=== PATIENT | female | born 1940 | race Caucasian/White ===

== ENCOUNTER 2017-01-22 12:31 | Outpatient (CLI) | payer MEDICARE ==
--- OUTSIDE RECORDS SUMMARY | 2017-01-22 12:33 | XMS | Clinical Summary ---
:[address] [facility] Address [address] [place] [id number] Phone Care Team Providers Name Role Phone , Primary Care Provider Unavailable Allergies Not on File Current Medications Not on file Active Problems Not on file Social History Tobacco Use Types Packs/Day Years Used Date Never Assessed Sex Assigned at Date Recorded Not on file Last Filed Vital Signs Not on file Plan of Treatment Not on file Results Not on filefrom Last 3 Months
[2017-01-22 13:54] LABS: #Eosinphils 0.1 thou/uL (0.0-0.7); #Lymphocytes 1.6 thou/uL (1.20-3.40); #Monocytes 0.5 thou/uL (0.11-0.59); #Neutrophils 5.1 thou/uL (1.40-6.50); %Basophils 0.5 % (0.0-1.0); %Eosinophils 1.5 % (0.0-10.0); %Lymphocytes 21.8 % (21.0-51.0); %Monocytes 6.7 % (0.0-10.0); Hematocrit 38.3 % (36.0-47.0); Mean Platelet Volume 7.2 fL (7.4-10.4); Red Blood Cell (RBC) Count 4.04 mill/uL (4.20-5.40); White Blood Cell (WBC) Count 7.3 thou/uL (4.8-10.8)
[2017-01-22 14:01] LABS: PTT 29.7 SEC (22.9-36.1)
[2017-01-22 14:02] LABS: Prothrombin Time 13.5 SEC (12.0-14.7)
[2017-01-22 14:17] LABS: Anion Gap 14 mmol/L (10-20); BUN (Urea Nitrogen) 16 mg/dL (9.8-20.1); Calc. Creatinine Clearance 0 mL/min (70-130); Calcium 9.6 mg/dL (7.8-10.44); Carbon Dioxide 26 mmol/L (23-31); Chloride 102 mmol/L (98-107); Estimated GFR-MDRD 73
--- NOTE | 2017-01-22 14:37 | RAD ---
CHEST 2 VIEWS: Date: 01/22/17 HISTORY: Preop. FINDINGS: Cardiac silhouette and pulmonary vasculature are unremarkable. Mediastinum is midline. There is no c onfluent air space consolidation, pneumothorax, or pleural fluid apparent. Degenerative changes of t he left shoulder are apparent. Postoperative changes of the right shoulder, right upper quadrant, an d lumbar spine are evident. IMPRESSION: No active cardiopulmonary abnormalities are demonstrated. POS: [facility]
[2017-01-22 14:54] LABS: Bilirubin Negative (Negative); Blood, Urine Negative (Negative); Glucose, Urine (Dipstick) Negative (Negative); Ketone, Urine Negative (Negative); Nitrite Negative (Negative); Protein, Urine (Dipstick) Negative (Neg-Trace); Urobilinogen 0.2 mg/dL (0.2-1.0)
[2017-01-22 15:00] LABS: Bacteria/HPF None Seen HPF (None Seen); Hyaline Casts/LPF 0-3 HYALINE CAST LPF (0-3 Hyaline); RBC/HPF 0-3 HPF (0-3); Squamous Epithelial 0-3 HPF (0-3)
== END 2017-01-22 12:32 | disposition home or self-care (01) ==
LOC: LABBT 12:31
PROVIDERS: ATTEND Orthopaedic Surgery
DX: Z01.818 Encounter for other preprocedural examination (principal); M75.101 Unspecified rotator cuff tear or rupture of right shoulder, not specified as traumatic
CPT/HCPCS: 71020; 80048; 81001; 85025; 85610; 85730; 86850; 86900; 86901; 87081

== ENCOUNTER 2017-02-11 14:28 | Outpatient (CLI) | payer MEDICARE ==
--- OUTSIDE RECORDS SUMMARY | 2017-02-13 09:16 | XMS | Clinical Summary ---
:1940 Author Organization [facility] Address [address] [place] [id number] Phone Care Team Providers Name Role Phone [...]
== END 2017-02-11 14:29 | disposition home or self-care (01) ==
LOC: LABBT 14:28
PROVIDERS: ATTEND Orthopaedic Surgery
DX: Z01.818 Encounter for other preprocedural examination (principal); M12.811 Other specific arthropathies, not elsewhere classified, right shoulder
CPT/HCPCS: 93005; 93010

== ENCOUNTER 2017-06-20 18:29 | Emergency (ER) | payer MEDICARE ==
--- NOTE | 2017-06-20 21:20 | ULT ---
ULTRASOUND WITH DOPPLER DUPLEX VENOUS LOWER EXTREMITY RIGHT 06/20/17 CPT: 86674 ICD-10-PCS: B54D HISTORY: Edema, erythema and pain of right lower extremity. TECHNIQUE: Color flow Doppler, spectral waveform analysis of pulsed Doppler, and smith-scale imaging with beatriz yoav and augmentation, were used to evaluate the right common femoral, femoral, popliteal, posterior tibial, and superficial femoral, veins; and the proximal portions of the profunda femoral and greater saphenous, veins. FINDINGS: There is appropriate compressibility and flow within the imaged deep vein system right lower extremit y without evidence of DVT. There is complex echogenicity of the right popliteal fossa which may be re lated to Pendleton's cyst formation. IMPRESSION: 1. No DVT. 2. Possible Pendleton's cyst. Correlate clinically. POS: [facility]
== END 2017-06-21 00:14 | disposition home or self-care (01) ==
LOC: ERS 18:29
DX: M71.21 Synovial cyst of popliteal space [Baker], right knee (principal); I10 Essential (primary) hypertension; E78.5 Hyperlipidemia, unspecified; M10.9 Gout, unspecified; E11.9 Type 2 diabetes mellitus without complications

== ENCOUNTER 2018-10-28 13:08 | Outpatient (CLI) | payer MEDICARE ==
[~2018-10-28 13:08] MED LIST: ISOVUE-370 76%-LOCM 1 ML ONE
--- NOTE | 2018-10-28 15:35 | CT ---
CTA OF THE ABDOMEN WITH CONTRAST 10/28/18 COMPARISON: None. HISTORY: Uncontrolled hypertension. TECHNIQUE: Multiple contiguous axial images were obtained in a CTA of the abdomen with contrast per renal artery protocol. 3D sagittal and coronal MIP reformats were performed. FINDINGS: The patient is status post cholecystectomy. The liver, kidneys, adrenal glands, spleen, and pancreas are unremarkable. No free air, free fluid, or stranding changes are seen in the abdomen. Scattered diverticula are seen in the colon. The small bowel is unremarkable. No abdominal adenopathy is seen. Mild atherosclerotic disease is seen in the infrarenal aorta. The celiac trunk, SMA, and ASHLEY are garg nt with no significant atherosclerotic disease. There is a single renal artery on the right and two r enal arteries on the left. Mild atherosclerotic disease is seen in the bilateral proximal renal arter ies without significant stenosis. No atherosclerotic disease is seen in the accessory left renal ferdinand ry. Degenerative changes and postsurgical changes are seen in the spine. The abdominal wall soft tissues and visualized inferior thorax are unremarkable. IMPRESSION: 1. No evidence of renal artery stenosis. 2. Diverticulosis. POS: [facility]
== END 2018-10-28 13:09 | disposition home or self-care (01) ==
LOC: BICCT 13:08
PROVIDERS: ATTEND Psychiatry & Neurology Neurology
DX: I71.9 Aortic aneurysm of unspecified site, without rupture (principal); K57.30 Diverticulosis of large intestine without perforation or abscess without bleeding
CPT/HCPCS: 74175; 82565; Q9966

== ENCOUNTER 2019-03-29 09:46 | Outpatient (CLI) | payer MEDICARE ==
[2019-03-29] MEDS ORDERED: Iopamidol-370 76% 500 ML 1 ML ONE (11:05)
--- NOTE | 2019-03-29 11:15 | CT ---
CT abdomen and pelvis with IV and oral contrast HISTORY: Right abdominal pain. COMPARISON: 10/28/2018. FINDINGS: Lung bases are clear. Gallbladder is surgically absent. Appendix not visualized and may als o be surgically absent. Tiny cysts of the left kidney. Liver and spleen have a normal appearance. No enlarged lymph nodes or free fluid. No evidence of bowel obstruction or inflammation. Urinary bladder is intact. Diverticula arise from the colon without adjacent inflammation. Calcification within the arterial str uctures. Postoperative and prominent degenerative changes of the lumbar spine. IMPRESSION: Diverticulosis. No evidence of diverticulitis. Atherosclerosis.
== END 2019-03-29 09:47 | disposition home or self-care (01) ==
LOC: BICCT 09:46
PROVIDERS: ATTEND Internal Medicine
DX: R10.31 Right lower quadrant pain (principal); K57.30 Diverticulosis of large intestine without perforation or abscess without bleeding; I70.90 Unspecified atherosclerosis
CPT/HCPCS: 74177; 82565; Q9967

== ENCOUNTER 2020-01-28 09:09 | Outpatient (CLI) | payer MEDICARE ==
--- NOTE | 2020-01-28 11:10 | MRI ---
MRI cervical spine noncontrast: 01/28/2020 HISTORY: 79-year-old female with cervical radiculopathy. M 54.12 COMPARISON: None available FINDINGS: Lateral curvature of cervical spine. Small caliber of spinal canal on a congenital basis due to devel opmentally short pedicles in the upper levels, exacerbated by cervical spondylosis. No such developmentally small caliber at lower levels. Vertebral body heights are maintained. No major bone m arrow signal abnormality identified. Images are degraded by motion such that it is somewhat difficult to evaluate for intramedullary signal abnormality. At the C6 level, there is questionable m ild T2 hyperintense intramedullary signal abnormality diffusely. This may or may not be artifact. No high-grade disc space narrowing at any level. Mild disc space narrowing at C3-4. No subluxation. C1-2: At least mild central spinal canal stenosis due to degenerative pseudopannus at atlantoodontoid junction. Only imaged on sagittal sequences. C2-3: Moderate ligamentum flavum thickening indenting the dorsal surface of spinal cord, and minimal disc bulge, superimposed on the developmentally small caliber spinal canal, result in moderate to severe central spinal canal stenosis. No high-grade neural foraminal stenosis. Severe left facet dege nerative hypertrophy. C3-4: Minimal disc bulge or disc-osteophyte complex broad-based encroaches upon ventral aspect of spi nal canal. Moderate ligamentum flavum thickening. Moderate to severe central spinal canal stenosis. Moderate sized right uncinate process osteophytes and severe right facet DJD result in severe right n eural foraminal stenosis. Moderate left facet DJD. Mild to moderate left neural foraminal stenosis. C4-5: Broad-based disc protrusion slightly indents ventral aspect of thecal sac. Mild to moderate gomez tral spinal canal stenosis. Moderate size right uncinate process osteophytes, together with severe right facet degenerative hypertrophy, results in severe right neural foraminal stenosis. Mild to mode rate left neural foraminal stenosis. C5-6: Broad-based shallow disc-osteophyte complex or disc protrusion. Ligamentum flavum thickening. M oderate size bilateral uncinate process osteophytes. Moderate to severe right facet DJD. Severe left facet degenerative hypertrophy. Moderate to severe right neural foraminal stenosis. Mild to mode rate left neural foraminal stenosis. Mild central spinal canal stenosis. C6-7: Severe right facet DJD. Bilateral moderate-sized uncinate process osteophytes. Severe stenosis of medial aspect of right neural foramen. Moderate to severe left neural foraminal stenosis. No high-grade left facet DJD. No central spinal canal stenosis. C7-T1: No central spinal canal stenosis. Moderate left facet DJD. Normal right facet joint. Mild bila teral neural foraminal stenosis. IMPRESSION: 1.) Cervical spondylosis mostly consisting of high-grade, including severe, bilateral facet osteoarth rosis. 2) severe right-sided neural foraminal stenosis at several levels. 3) central spinal canal stenosis at upper levels.
== END 2020-01-28 09:10 | disposition home or self-care (01) ==
LOC: TBSIIMAG 09:09
PROVIDERS: ATTEND Psychiatry & Neurology Neurology
DX: M47.22 Other spondylosis with radiculopathy, cervical region (principal); M48.02 Spinal stenosis, cervical region
CPT/HCPCS: 72141

== ENCOUNTER 2020-09-21 13:49 | Outpatient (CLI) | payer MEDICARE ==
[2020-09-21 16:08] LABS: #Eosinphils 0.2 10x3/uL (0.0-0.5); #Monocytes 0.5 10x3/uL (0.0-1.1); #Neutrophils 6.6 10x3/uL (1.5-8.4); %Basophils 0.4 % (0.0-2.0); %Eosinophils 1.8 % (0.0-6.0); %Lymphocytes 18.3 % (18.0-47.0); %Monocytes 5.4 % (0.0-10.0); %Neutrophils 73.8 % (40.0-75.0); Hemoglobin 12.5 g/dL (12.0-15.5); Mean Corpuscular HGB CONC 32.9 g/dL (32.0-36.0); Mean Corpuscular Hemoglobin 29.9 pg (27.0-33.0); Mean Corpuscular Volume 90.9 fl (81.6-98.3); Mean Platelet Volume 10.6 fl (7.4-10.4); Platelet Count 210 10x3/uL (150-450); RBC Distribution Width 13.1 % (11.5-14.5); Red Blood Cell (RBC) Count 4.18 10x6/uL (3.90-5.03)
[2020-09-21 16:19] LABS: Prothrombin Time 11.4 sec (9.5-12.1)
[2020-09-21 16:24] LABS: Anion Gap 16 mmol/L (10-20); BUN (Urea Nitrogen) 22 mg/dL (9.8-20.1); Calc. Creatinine Clearance 0 mL/min (70-130); Calcium 9.5 mg/dL (7.8-10.44); Carbon Dioxide 27 mmol/L (23-31); Chloride 104 mmol/L (98-107); Glucose 160 mg/dL (83-110); Potassium 4.7 mmol/L (3.5-5.1); Sodium 142 mmol/L (136-145)
[2020-09-22 13:03] LABS: SARS-CoV-2 PCR by NAA Not Detected (NotDetected)
== END 2020-09-21 13:50 | disposition home or self-care (01) ==
LOC: LABBT 13:49
PROVIDERS: ATTEND Orthopaedic Surgery
DX: Z01.818 Encounter for other preprocedural examination (principal); M17.11 Unilateral primary osteoarthritis, right knee; Z20.822 Contact with and (suspected) exposure to COVID-19
CPT/HCPCS: 80048; 85025; 85610; 87081; 93005; U0003; U0005; 93010

== ENCOUNTER 2020-09-26 09:20 | Inpatient (IN) | payer MEDICARE ==
[2020-09-22 13:34] VITALS: BMI 34.3
[2020-09-26] MEDS ORDERED: Midazolam HCl 2 mg/2 ml Vial ONE (10:10)
[2020-09-26] MEDS ORDERED: Fentanyl 100 MCG/2 ML VIAL ONE ×3 (10:10→14:13)
[2020-09-26] MEDS ORDERED: Tranexamic Acid 1,000 MG/10 ML VIAL ONE (10:13)
[2020-09-26] MEDS ORDERED: Sodium Chloride 0.9% 200 ML ONE (10:13)
[2020-09-26] MEDS ORDERED: Vancomycin 1 GM/200 ML BAG ONE (10:13)
[2020-09-26] MEDS ORDERED: Vancomycin HCl 500 MG VIAL ONE (10:13)
[2020-09-26] MEDS ORDERED: Fentanyl 100 MCG/2 ML VIAL IV PRN (10:44)
[2020-09-26] MEDS ORDERED: Ondansetron PF 4 MG/2 ML Vial IVP PRN ×2 (10:45→10:59)
[2020-09-26] MEDS ORDERED: traMADol HCl 50 MG TAB PO PRN (10:45)
[2020-09-26] MEDS ORDERED: Promethazine HCl 25 MG/ML VIAL IM PRN ×3 (10:45→12:10)
[2020-09-26] MEDS ORDERED: Ropivacaine HCl/PF 250 ML in Premix Bag 1 BAG NERVE BLCK SCH (10:45)
[2020-09-26] MEDS ORDERED: Zolpidem Tartrate 5 MG TAB PO PRN ×2 (10:45→10:59)
[2020-09-26] MEDS ORDERED: Acetaminophen 325 MG TAB PO PRN (10:59)
[2020-09-26] MEDS ORDERED: diphenhydrAMINE 25 MG CAP PO PRN (10:59)
[2020-09-26] MEDS ORDERED: Ipratropium Bromide 0.03% Nasal Inhaler 30 ml Bottle EA NARE PRN (11:00)
[2020-09-26] MEDS ORDERED: Bupivacaine HCl 0.5%/Epinephrine 1:200,000/PF 30 ml Vial ONE (11:44)
[2020-09-26] MEDS ORDERED: Ondansetron PF 4 MG/2 ML Vial ONE ×2 (11:44→13:31)
[2020-09-26] MEDS ORDERED: PROPOFOL 200 MG/20 ML VIAL ONE (11:44)
[2020-09-26] MEDS ORDERED: Lidocaine 1% PF 5 ML VIAL ONE (11:44)
[2020-09-26] MEDS ORDERED: Glycopyrrolate 0.2 MG/ML 5 ML SYRINGE ONE (11:44)
[2020-09-26] MEDS ORDERED: Ropivacaine 2% HCl/PF (20 MG/10 ML VIAL) ONE (11:44)
[2020-09-26] MEDS ORDERED: Promethazine HCl 25 MG/ML VIAL SLOW IVP PRN (12:10)
[2020-09-26] MEDS ORDERED: Ondansetron HCl/PF 4 MG/2 ML Vial IVP PRN (12:10)
[2020-09-26] MEDS ORDERED: Ketorolac Tromethamine 30 MG/ML VIAL ONE (13:53)
[2020-09-26] MEDS ORDERED: Promethazine HCl 25 MG/ML VIAL ONE (14:12)
[2020-09-26] MEDS: Ketorolac Tromethamine 30 MG/ML VIAL IVP SCH ×3 (15:30→23:00)
[2020-09-26] MEDS: HYDROcodone/Acetaminophen 10/325 mg Tablet PO PRN ×2 (15:40→23:03)
[2020-09-26] MEDS ORDERED: Dextrose 50% Abboject 50 ML SYRINGE SLOW IVP PRN (16:12)
[2020-09-26] MEDS ORDERED: Dextrose 5% in Water 1,000 ML IV PRN (16:12)
[2020-09-26] MEDS ORDERED: Insulin Regular 300 UNITS/3 ML VIAL SC PRN (16:12)
[2020-09-26] MEDS: Alogliptin 6.25 MG TAB PO SCH (17:03)
[2020-09-26] MEDS: metFORMIN 500 MG TAB PO SCH (17:03)
[2020-09-26] MEDS: CEFAZOLIN 2 GM in Premix Bag 1 BAG IVPB SCH (17:13)
[2020-09-26] MEDS: traMADol HCl 50 MG TAB PO PRN (18:16)
[2020-09-26] MEDS ORDERED: Metoprolol Tartrate 25 MG TAB PO SCH (21:00)
[2020-09-26] MEDS: Aspirin 81 mg Enteric Coated Tablet PO SCH (21:35)
[2020-09-26] MEDS: Ferrous Gluconate 324 MG TAB PO SCH (21:35)
[2020-09-26] MEDS: Atorvastatin Calcium 40 MG TAB PO SCH (21:35)
[2020-09-26] MEDS: Senokot S 8.6-50 MG TAB PO SCH (21:36)
[2020-09-26] MEDS: Metoprolol Tartrate 50 MG TAB PO SCH (21:36)
[2020-09-26] MEDS: Pyridostigmine Bromide IR 60 MG TAB PO SCH (22:06)
[2020-09-27] MEDS: CEFAZOLIN 2 GM in Premix Bag 1 BAG IVPB SCH (01:50)
[2020-09-27] MEDS: traMADol HCl 50 MG TAB PO PRN (01:58)
[2020-09-27] MEDS: Ketorolac Tromethamine 30 MG/ML VIAL IVP SCH ×3 (05:09→17:55)
[2020-09-27] MEDS: Levothyroxine Sodium 75 MCG TAB PO SCH (05:11)
[2020-09-27 05:42] LABS: Hemoglobin 9.9 g/dL (12.0-16.0); Mean Corpuscular HGB CONC 33.6 g/dL (32.0-36.0); Mean Corpuscular Hemoglobin 30.8 pg (27.0-31.0); Mean Corpuscular Volume 91.6 fL (78.0-98.0); Mean Platelet Volume 8.2 fL (7.4-10.4); Platelet Count 151 thou/uL (130-400); RBC Distribution Width 12.1 % (11.5-14.5); White Blood Cell (WBC) Count 11.3 thou/uL (4.8-10.8)
[2020-09-27 06:04] LABS: Anion Gap 13 mmol/L (10-20); BUN (Urea Nitrogen) 11 mg/dL (9.8-20.1); Calc. Creatinine Clearance 91 mL/min (70-130); Calcium 8.2 mg/dL (7.8-10.44); Carbon Dioxide 24 mmol/L (23-31); Chloride 100 mmol/L (98-107); Glucose 152 mg/dL (83-110); Magnesium 1.4 mg/dL (1.6-2.6); Potassium 3.5 mmol/L (3.5-5.1); Sodium 133 mmol/L (136-145)
[2020-09-27] MEDS ORDERED: Magnesium Sulfate 3 GM in Sodium Chloride 0.9% 100 ML IVPB SCH (08:00)
[2020-09-27] MEDS ORDERED: Lisinopril 20 MG TAB PO SCH (09:00)
[2020-09-27] MEDS ORDERED: Calcium Citrate 950 MG TAB PO SCH (09:00)
[2020-09-27] MEDS ORDERED: Amlodipine 5 MG TAB PO SCH (09:00)
[2020-09-27] MEDS ORDERED: Multivitamin W/ Minerals 1 TAB PO SCH (09:00)
[2020-09-27] MEDS ORDERED: Hydrochlorothiazide 25 MG TAB PO SCH (09:00)
[2020-09-27] MEDS ORDERED: GLATIRAMER ACETATE 40 MG PO SCH (09:00)
[2020-09-27] MEDS ORDERED: Non-Formulary Item 1 EACH (Biotin [Biotin] 10,000 MCG Capsule) PO SCH (09:00)
[2020-09-27] MEDS: Stress 600 With Zinc 1 TAB PO SCH (09:45)
[2020-09-27] MEDS: Alogliptin 6.25 MG TAB PO SCH ×2 (09:46→17:54)
[2020-09-27] MEDS: Cholecalciferol 1,000 UNITS (25 MCG) TAB PO SCH (09:46)
[2020-09-27] MEDS: Pioglitazone HCl 15 MG TAB PO SCH (09:47)
[2020-09-27] MEDS: Multivitamin W/ Minerals 1 TAB PO SCH (09:47)
[2020-09-27] MEDS: Senokot S 8.6-50 MG TAB PO SCH ×2 (09:47→20:59)
[2020-09-27] MEDS: Ferrous Gluconate 324 MG TAB PO SCH ×2 (09:47→20:58)
[2020-09-27] MEDS: Aspirin 81 mg Enteric Coated Tablet PO SCH ×2 (09:47→20:58)
[2020-09-27] MEDS: Folic Acid 1 MG TAB PO SCH (09:47)
[2020-09-27] MEDS: metFORMIN 500 MG TAB PO SCH ×2 (09:48→17:54)
[2020-09-27] MEDS: Pyridostigmine Bromide IR 60 MG TAB PO SCH ×2 (09:48→21:05)
[2020-09-27] MEDS: Metoprolol Tartrate 50 MG TAB PO SCH ×2 (09:49→20:54)
[2020-09-27] MEDS: Amlodipine 5 MG TAB PO SCH (09:49)
[2020-09-27] MEDS: HYDROcodone/Acetaminophen 10/325 mg Tablet PO PRN ×3 (11:03→21:04)
[2020-09-27] MEDS: Sodium Chloride 0.9% 500 ML IVPB SCH ×2 (12:35→13:52)
[2020-09-27 13:47] LABS: Bilirubin Negative (Negative); Blood, Urine Moderate (Negative); Glucose, Urine (Dipstick) Negative (Negative); Ketone, Urine Negative (Negative); Leukocyte Negative (Negative); Nitrite Negative (Negative); Protein, Urine (Dipstick) Negative (Neg-Trace); Urobilinogen 0.2 mg/dL (Less than 2)
[2020-09-27 14:02] LABS: Clarity Clear (Clear)
[2020-09-27 14:42] LABS: Bacteria/HPF None Seen HPF (None Seen); RBC/HPF 0-3 HPF (0-3); Squamous Epithelial None Seen HPF (0-3); Urine Culture Reflex No No; WBC/HPF None Seen HPF (0-3)
[2020-09-27] MEDS ORDERED: Lidocaine 1% w/Epinephrine 1:100K 20 ML VIAL ONE (17:05)
[2020-09-27] MEDS: Insulin Regular 300 UNITS/3 ML VIAL SC PRN (17:59)
[2020-09-27] MEDS: Atorvastatin Calcium 40 MG TAB PO SCH (20:58)
[2020-09-28] MEDS: Ketorolac Tromethamine 30 MG/ML VIAL IVP SCH ×2 (00:34→06:36)
[2020-09-28] MEDS: HYDROcodone/Acetaminophen 10/325 mg Tablet PO PRN ×2 (00:37→14:52)
[2020-09-28 05:56] LABS: Hemoglobin 9.2 g/dL (12.0-16.0); Mean Corpuscular HGB CONC 33.9 g/dL (32.0-36.0); Mean Corpuscular Hemoglobin 31.7 pg (27.0-31.0); Mean Corpuscular Volume 93.4 fL (78.0-98.0); Mean Platelet Volume 7.8 fL (7.4-10.4); Platelet Count 138 thou/uL (130-400); Red Blood Cell (RBC) Count 2.91 mill/uL (4.20-5.40); White Blood Cell (WBC) Count 8.9 thou/uL (4.8-10.8)
[2020-09-28] MEDS: Levothyroxine Sodium 75 MCG TAB PO SCH (06:36)
[2020-09-28] MEDS: Ferrous Gluconate 324 MG TAB PO SCH (09:14)
[2020-09-28] MEDS: Multivitamin W/ Minerals 1 TAB PO SCH (09:14)
[2020-09-28] MEDS: Senokot S 8.6-50 MG TAB PO SCH (09:14)
[2020-09-28] MEDS: Folic Acid 1 MG TAB PO SCH (09:14)
[2020-09-28] MEDS: Pioglitazone HCl 15 MG TAB PO SCH (09:14)
[2020-09-28] MEDS: metFORMIN 500 MG TAB PO SCH ×2 (09:14→17:44)
[2020-09-28] MEDS: Aspirin 81 mg Enteric Coated Tablet PO SCH (09:15)
[2020-09-28] MEDS: Cholecalciferol 1,000 UNITS (25 MCG) TAB PO SCH (09:15)
[2020-09-28] MEDS: Metoprolol Tartrate 50 MG TAB PO SCH (09:16)
[2020-09-28] MEDS: Stress 600 With Zinc 1 TAB PO SCH (09:16)
[2020-09-28] MEDS: Pyridostigmine Bromide IR 60 MG TAB PO SCH (09:16)
[2020-09-28] MEDS: Amlodipine 5 MG TAB PO SCH (09:16)
[2020-09-28] MEDS: Alogliptin 6.25 MG TAB PO SCH ×2 (09:21→17:44)
[2020-09-28] MEDS: Insulin Regular 300 UNITS/3 ML VIAL SC PRN (11:51)
[2020-09-28] MEDS ORDERED: Ropivacaine HCl/PF 250 ML in Premix Bag 1 BAG NERVE BLCK SCH (12:00)
[2020-09-28 15:27] VITALS: BP 139/68; TEMP 99.5
[2020-09-29] MEDS ORDERED: GLATIRAMER ACETATE 40 MG/ML SC SCH (09:00)
== END 2020-09-28 18:10 | disposition swing bed (61) | DRG 470 ==
LOC: SDC 09:20 → SURG B 10:59
PROVIDERS: ADMIT Orthopaedic Surgery; ATTEND Hospitalist
PROC: 0SRC0J9 Replacement of Right Knee Joint with Synthetic Substitute, Cemented, Open Approach (ICD-10-PCS; principal; 2020-09-26)
PROC: 8E0YXBZ Computer Assisted Procedure of Lower Extremity (ICD-10-PCS; 2020-09-26)
DX: M17.11 Unilateral primary osteoarthritis, right knee (principal); Z20.822 Contact with and (suspected) exposure to COVID-19; G35 Multiple sclerosis; I10 Essential (primary) hypertension; E78.5 Hyperlipidemia, unspecified; M10.9 Gout, unspecified; K21.9 Gastro-esophageal reflux disease without esophagitis; E78.00 Pure hypercholesterolemia, unspecified; E03.9 Hypothyroidism, unspecified; M51.36 Other intervertebral disc degeneration, lumbar region; G89.29 Other chronic pain; I25.10 Atherosclerotic heart disease of native coronary artery without angina pectoris; D64.9 Anemia, unspecified; J30.2 Other seasonal allergic rhinitis; G70.00 Myasthenia gravis without (acute) exacerbation; E11.51 Type 2 diabetes mellitus with diabetic peripheral angiopathy without gangrene; E11.69 Type 2 diabetes mellitus with other specified complication; E66.01 Morbid (severe) obesity due to excess calories; Z96.652 Presence of left artificial knee joint; I95.9 Hypotension, unspecified; Z68.34 Body mass index [BMI] 34.0-34.9, adult; Z90.49 Acquired absence of other specified parts of digestive tract; Z98.890 Other specified postprocedural states; Z98.1 Arthrodesis status; Z90.710 Acquired absence of both cervix and uterus; Z79.899 Other long term (current) drug therapy; Z79.82 Long term (current) use of aspirin; Z79.890 Hormone replacement therapy; Z95.5 Presence of coronary angioplasty implant and graft; Z87.891 Personal history of nicotine dependence
CPT/HCPCS: 36415; 36416; 80048; 81001; 83735; 85027; C1713; C1776; J0690; J1815; J1885; J2250; J2405; J2550; J2704; J2795; J3010; J3370; J3490; J7030

== ENCOUNTER 2021-01-30 10:24 | Outpatient (CLI) | payer MEDICARE ==
[2021-01-30 11:34] LABS: #Eosinphils 0.1 10x3/uL (0.0-0.5); #Monocytes 0.5 10x3/uL (0.0-1.1); #Neutrophils 7.2 10x3/uL (1.5-8.4); %Basophils 0.4 % (0.0-2.0); %Eosinophils 1.1 % (0.0-6.0); %Lymphocytes 18.2 % (18.0-47.0); %Monocytes 5.2 % (0.0-10.0); %Neutrophils 74.7 % (40.0-75.0); Hemoglobin 12.1 g/dL (12.0-15.5); Mean Corpuscular HGB CONC 32.8 g/dL (32.0-36.0); Mean Corpuscular Hemoglobin 28.8 pg (27.0-33.0); Mean Corpuscular Volume 87.9 fl (81.6-98.3); Mean Platelet Volume 10.7 fl (7.4-10.4); Platelet Count 209 10x3/uL (150-450); RBC Distribution Width 13.7 % (11.5-14.5); White Blood Cell (WBC) Count 9.6 10x3/uL (3.5-10.5)
[2021-01-30 12:11] LABS: Anion Gap 18 mmol/L (10-20); BUN (Urea Nitrogen) 18 mg/dL (9.8-20.1); Calc. Creatinine Clearance 0 mL/min (70-130); Calcium 10.2 mg/dL (7.8-10.44); Carbon Dioxide 25 mmol/L (23-31); Chloride 103 mmol/L (98-107); Glucose 155 mg/dL (83-110); Potassium 4.1 mmol/L (3.5-5.1); Sodium 142 mmol/L (136-145)
[2021-01-30 20:37] LABS: SARS-CoV-2 PCR by NAA Not Detected (NotDetected)
== END 2021-01-30 10:25 | disposition home or self-care (01) ==
LOC: LABBT 10:24
PROVIDERS: ATTEND Orthopaedic Surgery
DX: Z01.812 Encounter for preprocedural laboratory examination (principal); M19.012 Primary osteoarthritis, left shoulder; Z20.822 Contact with and (suspected) exposure to COVID-19
CPT/HCPCS: 80048; 85025; U0003; U0005

== ENCOUNTER 2021-02-01 07:36 | Observation (INO) | payer MEDICARE ==
[2021-02-01] MEDS ORDERED: ceFAZolin 2 GM/DEX 5% 100 ML BAG ONE (08:03)
[2021-02-01] MEDS ORDERED: Tranexamic Acid 1,000 MG/10 ML VIAL ONE ×2 (08:03→12:09)
[2021-02-01] MEDS ORDERED: Sodium Chloride 0.9% 100 ML ONE (08:04)
[2021-02-01] MEDS ORDERED: Fentanyl 100 MCG/2 ML VIAL ONE ×4 (08:11→12:36)
[2021-02-01] MEDS ORDERED: Midazolam HCl 2 mg/2 ml Vial ONE (08:11)
[2021-02-01] MEDS ORDERED: Vancomycin 1.5 GRAM/300 ML BAG 1.5 GM in Premix Bag 1 BAG IVPB SCH (08:15)
[2021-02-01] MEDS ORDERED: Sodium Chloride 0.9% 10 ML ONE (09:21)
[2021-02-01] MEDS ORDERED: Fentanyl 100 MCG/2 ML VIAL SLOW IVP PRN (09:25)
[2021-02-01] MEDS ORDERED: Ondansetron PF 4 MG/2 ML Vial IVP PRN (09:30)
[2021-02-01] MEDS ORDERED: Promethazine HCl 25 MG/ML VIAL IM PRN ×2 (09:30→12:06)
[2021-02-01] MEDS ORDERED: HYDROcodone/Acetaminophen 10/325 mg Tablet PO PRN ×2 (09:30→11:43)
[2021-02-01] MEDS ORDERED: Zolpidem Tartrate 5 MG TAB PO PRN (09:30)
[2021-02-01] MEDS ORDERED: traMADol HCl 50 MG TAB PO PRN (09:30)
[2021-02-01] MEDS ORDERED: Ropivacaine 0.2% 550 ML 550 ML NERVE BLCK SCH (09:30)
[2021-02-01] MEDS ORDERED: Phenylephrine 10 MG/ML VIAL ONE (10:03)
[2021-02-01] MEDS ORDERED: Ondansetron PF 4 MG/2 ML Vial ONE (10:08)
[2021-02-01] MEDS ORDERED: ePHEDrine 50 MG/ML VIAL ONE (10:08)
[2021-02-01] MEDS ORDERED: Bupivacaine PF 0.5% 30 ML VIAL ONE (10:08)
[2021-02-01] MEDS ORDERED: PROPOFOL 200 MG/20 ML VIAL ONE (10:08)
[2021-02-01] MEDS ORDERED: Lidocaine 1% PF 5 ML VIAL ONE (10:08)
[2021-02-01] MEDS ORDERED: Ipratropium Bromide 0.03% Nasal Inhaler 30 ml Bottle EA NARE PRN (11:43)
[2021-02-01] MEDS ORDERED: Promethazine HCl 25 MG/ML VIAL IVPB PRN (12:06)
[2021-02-01] MEDS ORDERED: Ondansetron HCl/PF 4 MG/2 ML Vial IVP PRN (12:06)
[2021-02-01] MEDS ORDERED: FLU VACC QS2021-22(65YR UP)/PF 240 MCG/0.7 ML SYRINGE IM ONE (15:00)
[2021-02-01] MEDS: Dextrose 5 %-0.45 % NaCl 1,000 ML IV SCH ×2 (15:11→18:12)
[2021-02-01] MEDS: HYDROcodone/Acetaminophen 10/325 mg Tablet PO PRN ×2 (15:27→19:57)
[2021-02-01] MEDS: ceFAZolin Sodium/D5W 2 GM in Premix Bag 1 BAG IVPB SCH (18:10)
[2021-02-01] MEDS: Alogliptin 6.25 MG TAB PO SCH (18:11)
[2021-02-01] MEDS: metFORMIN 500 MG TAB PO SCH (18:11)
[2021-02-01] MEDS: Metoprolol Tartrate 50 MG TAB PO SCH (19:56)
[2021-02-01] MEDS ORDERED: Vancomycin 1 GM in Premix Bag 1 BAG IVPB SCH (20:00)
[2021-02-01] MEDS ORDERED: Atorvastatin Calcium 40 MG TAB PO SCH (21:00)
[2021-02-01] MEDS ORDERED: PYRIDOSTIGMINE BROMIDE 30 MG PO SCH (21:00)
[2021-02-01] MEDS: traMADol HCl 50 MG TAB PO PRN (22:05)
[2021-02-02] MEDS: HYDROcodone/Acetaminophen 10/325 mg Tablet PO PRN ×4 (00:50→12:41)
[2021-02-02] MEDS: ceFAZolin Sodium/D5W 2 GM in Premix Bag 1 BAG IVPB SCH (02:16)
[2021-02-02] MEDS: traMADol HCl 50 MG TAB PO PRN ×2 (05:58→11:42)
[2021-02-02] MEDS ORDERED: Levothyroxine Sodium 75 MCG TAB PO SCH (06:00)
[2021-02-02] MEDS: metFORMIN 500 MG TAB PO SCH (08:28)
[2021-02-02] MEDS: Metoprolol Tartrate 50 MG TAB PO SCH (08:29)
[2021-02-02] MEDS: Lisinopril 20 MG TAB PO SCH ×2 (08:30→08:32)
[2021-02-02] MEDS ORDERED: Pioglitazone HCl 15 MG TAB PO SCH (09:00)
[2021-02-02] MEDS ORDERED: Calcium Citrate 950 MG TAB PO SCH (09:00)
[2021-02-02] MEDS ORDERED: Aspirin 325 MG TAB PO SCH (09:00)
[2021-02-02] MEDS ORDERED: Hydrochlorothiazide 25 MG TAB PO SCH (09:00)
[2021-02-02] MEDS ORDERED: Amlodipine 5 MG TAB PO SCH (09:00)
[2021-02-02] MEDS: Alogliptin 6.25 MG TAB PO SCH (10:26)
[2021-02-02 13:12] VITALS: BP 106/66; TEMP 97.4
[2021-02-04] MEDS ORDERED: GLATIRAMER ACETATE 40 MG/ML SC SCH (09:00)
== END 2021-02-02 15:20 | disposition home or self-care (01) ==
LOC: SDC 07:36 → SURG B 11:44
PROVIDERS: ADMIT Orthopaedic Surgery; ATTEND Orthopaedic Surgery
PROC: 0RRK00Z Replacement of Left Shoulder Joint with Reverse Ball and Socket Synthetic Substitute, Open Approach (ICD-10-PCS; principal; 2021-02-01)
PROC: 3E0T3BZ Introduction of Anesthetic Agent into Peripheral Nerves and Plexi, Percutaneous Approach (ICD-10-PCS; 2021-02-01)
DX: M19.012 Primary osteoarthritis, left shoulder (principal); M75.22 Bicipital tendinitis, left shoulder; M75.32 Calcific tendinitis of left shoulder; I10 Essential (primary) hypertension; I45.10 Unspecified right bundle-branch block; E11.9 Type 2 diabetes mellitus without complications; E03.9 Hypothyroidism, unspecified; K21.9 Gastro-esophageal reflux disease without esophagitis; G35 Multiple sclerosis; G89.29 Other chronic pain; M54.9 Dorsalgia, unspecified; M10.9 Gout, unspecified; E78.5 Hyperlipidemia, unspecified; M47.812 Spondylosis without myelopathy or radiculopathy, cervical region; Z23 Encounter for immunization; Z86.73 Personal history of transient ischemic attack (TIA), and cerebral infarction without residual deficits; Z87.891 Personal history of nicotine dependence; Z79.82 Long term (current) use of aspirin; Z79.84 Long term (current) use of oral hypoglycemic drugs; Z79.899 Other long term (current) drug therapy; Z88.8 Allergy status to other drugs, medicaments and biological substances; Z91.040 Latex allergy status; Z91.048 Other nonmedicinal substance allergy status; Z96.611 Presence of right artificial shoulder joint; Z96.641 Presence of right artificial hip joint; Z96.653 Presence of artificial knee joint, bilateral; Z98.1 Arthrodesis status; Z98.890 Other specified postprocedural states
CPT/HCPCS: 23430; 23472; 64416; 90662; 96374; 96375; 96376; 97110 ×2; 97116; 97139 ×3; 97535; A4306; C1713 ×2; G0008; G0378 ×2; 90471; J2250; J2370; J2405; J2704; J2795; J3010; J3370; J3490; J7042; S0020

== ENCOUNTER 2022-08-09 07:58 | Outpatient (CLI) | payer MEDICARE | END 2022-08-09 07:59 | disposition home or self-care (01) | LOC: SCSMRI 07:58 | PROVIDERS: ATTEND Psychiatry & Neurology Neurology | DX: G35 Multiple sclerosis (principal); R90.82 White matter disease, unspecified; M51.34 Other intervertebral disc degeneration, thoracic region; M47.812 Spondylosis without myelopathy or radiculopathy, cervical region; M47.813 Spondylosis without myelopathy or radiculopathy, cervicothoracic region | CPT/HCPCS: 70553; 72156; 72157 ==

== ENCOUNTER 2022-11-03 10:58 | Emergency (ER) | payer MEDICARE ==
[2022-11-03 11:43] LABS: Bacteria/HPF None Seen HPF (None Seen); Bilirubin Negative (Negative); Blood, Urine Negative (Negative); CAUTI Indications for Culture Dysuria,urgency,freq; Clarity Clear (Clear); Glucose, Urine (Dipstick) Greater than 1000 mg/dL (Negative); Ketone, Urine Negative (Negative); Leukocyte Negative Leu/uL (Negative); Nitrite Negative (Negative); Protein, Urine (Dipstick) Negative (Neg-Trace); RBC/HPF 0-3 HPF (0-3); Specific Gravity, Urine 1.009 (1.002-1.036); Squamous Epithelial 0-3 HPF (0-3); Urobilinogen Normal mg/dL (Less than 2); WBC/HPF 0-3 HPF (0-3); pH, Urine 6.5 (5.0-9.0)
[2022-11-03 11:45] LABS: Urine Culture Reflex No No
== END 2022-11-03 12:47 | disposition home or self-care (01) ==
LOC: ERS 10:58
DX: B02.23 Postherpetic polyneuropathy (principal); I10 Essential (primary) hypertension; E78.00 Pure hypercholesterolemia, unspecified; K21.9 Gastro-esophageal reflux disease without esophagitis; E11.9 Type 2 diabetes mellitus without complications; Z79.899 Other long term (current) drug therapy; Z79.82 Long term (current) use of aspirin
CPT/HCPCS: 36416; 81001; 99283

== ENCOUNTER 2024-11-24 13:25 | Outpatient (CLI) | payer MEDICARE | END 2024-11-24 13:26 | disposition home or self-care (01) | LOC: CT 13:25 | PROVIDERS: ATTEND Psychiatry & Neurology Neurology | DX: M47.26 Other spondylosis with radiculopathy, lumbar region (principal); M48.061 Spinal stenosis, lumbar region without neurogenic claudication; M48.05 Spinal stenosis, thoracolumbar region; M43.16 Spondylolisthesis, lumbar region; Z98.890 Other specified postprocedural states | CPT/HCPCS: 72131 ==